=== PATIENT | male | born 1945 | race Caucasian/White ===

== ENCOUNTER 2019-03-21 14:15 | Inpatient (IN) | payer MEDICARE ==
[~2019-03-21 14:15] MED LIST: Amiodarone 150 MG/3 ML VIAL ONE; Calcium Chloride 1 GM/10 ML Abboject SYRINGE ONE; EPINEPHrine 1 MG/10 ML Abboject SYRINGE ONE; ISOVUE-370 76%-LOCM 1 ML ONE
[2019-03-21] MEDS ORDERED: Norepinephrine 4 MG/4 ML VIAL ONE (14:25)
[2019-03-21 14:35] LABS: #Basophils 0.1 thou/uL (0.0-0.2); #Eosinphils 0.2 thou/uL (0.0-0.7); #Lymphocytes 5.1 thou/uL (1.20-3.40); #Monocytes 0.4 thou/uL (0.11-0.59); #Neutrophils 4.8 thou/uL (1.40-6.50); %Basophils 1.1 % (0.0-1.0); %Eosinophils 1.8 % (0.0-10.0); %Lymphocytes 47.8 % (21.0-51.0); %Monocytes 3.8 % (0.0-10.0); %Neutrophils 45.5 % (42.0-75.0); Hemoglobin 15.2 g/dL (14.0-18.0); Mean Corpuscular HGB CONC 32.8 g/dL (32.0-36.0); Mean Corpuscular Hemoglobin 31.2 pg (27.0-31.0); Mean Corpuscular Volume 95.1 fL (78.0-98.0); Mean Platelet Volume 10.1 fL (7.4-10.4); Platelet Count 152 thou/uL (130-400); RBC Distribution Width 12.7 % (11.5-14.5); Red Blood Cell (RBC) Count 4.87 mill/uL (4.70-6.10); White Blood Cell (WBC) Count 10.6 thou/uL (4.8-10.8)
[2019-03-21] MEDS ORDERED: Potassium Chloride 20 MEQ/100 ML PREMIX BAG ONE (14:44)
--- NOTE | 2019-03-21 14:47 | RAD ---
Exam: Chest one view HISTORY:Cardiac arrest. Comparison: None FINDINGS: Cardiac silhouette: Normal Pulmonary vessels: Slightly prominent. Costophrenic angles: Clear Lines and tubes: Endotracheal tube at the level of the clavicles. Nasogastric tube extends beyond the diaphragm. Distal tip is not seen. LUNGS: No masses or consolidation. Pneumothorax: No pneumothorax on the supine projection. Osseous abnormalities: None IMPRESSION: 1. Lines and tubes as above. 2. Slight prominence pulmonary vasculature which may be due to cardiac arrest or supine position.
[2019-03-21 14:54] LABS: INR-International Normal Ratio 1.2; PTT 35.4 SEC (22.9-36.1)
[2019-03-21] MEDS ORDERED: EPINEPHrine 1 MG/10 ML Abboject SYRINGE ONE (15:00)
[2019-03-21] MEDS ORDERED: Sodium Bicarb 50 MEQ/50 ML Abboject 8.4% SYRINGE ONE (15:00)
[2019-03-21] MEDS ORDERED: Amiodarone 150 MG/3 ML VIAL ONE (15:00)
[2019-03-21 15:03] LABS: ALT (SGPT) 279 U/L (8-55); AST (SGOT) 223 U/L (5-34); Alkaline Phosphatase 67 U/L (40-150); Anion Gap 20 mmol/L (10-20); BUN (Urea Nitrogen) 17 mg/dL (8.4-25.7); Bilirubin, Total 0.6 mg/dL (0.2-1.2); CK (CPK) 120 U/L (30-200); Calc. Creatinine Clearance 0 mL/min (70-130); Calcium 8.6 mg/dL (7.8-10.44); Carbon Dioxide 13 mmol/L (23-31); Chloride 108 mmol/L (98-107); Estimated GFR-MDRD 74; Globulin 2.5 g/dL (2.4-3.5); Glucose 210 mg/dL (83-110); Lipase 22 U/L (8-78); Magnesium 3.9 mg/dL (1.6-2.6); Protein, Total 6.5 g/dL (5.8-8.1); Sodium 138 mmol/L (136-145)
[2019-03-21 15:11] LABS: Lactic Acid 6.4 mmol/L (0.5-2.2)
[2019-03-21] MEDS ORDERED: Aspirin 300 MG Suppository ONE (15:14)
--- NOTE | 2019-03-21 15:15 | CT ---
Exam: Head CT without contrast HISTORY: Cardiac arrest. COMPARISON: none FINDINGS: Hemorrhage: No intraparenchymal hemorrhage or extra-axial hematoma. Brain parenchyma: Cortical wright-white matter differentiation is preserved. No mass effect or midline shift. Basilar cisterns are patent.Scattered white matter hypodensities likely due to chronic small vessel ischemic change. Ventricular system: Ventricles and sulci are patent and symmetric. Calvarium: Intact. Sinuses and mastoid air cells: Adequate aeration. IMPRESSION: No acute intracranial process.
[2019-03-21 15:45] LABS: Analyzer IN Cardio ER; Base Excess (BEa) -11.4 mEq/L (-2.0 to +3.0); CO2 Tension 41.2 mmHg (35.0-45.0); Carboxyhemoglobin (COHb) 0.3 gm% (0.0-3.0); Hemoglobin (Hb) 14.8 g/dL (14.0-18.0); O2 Tension (PaO2) 237.1 mmHg (> 70.0); Potassium - ABG Lab 2.97 mmol/L (3.70-5.30); Puncture Site LBA; pH, Arterial 7.21 (7.35-7.45)
[2019-03-21] MEDS ORDERED: Labetalol HCl 100 MG/20 ML VIAL ONE (16:03)
[2019-03-21 16:10] LABS: Bilirubin Negative (Negative); Blood, Urine Moderate (Negative); Clarity CLEAR (Clear); Glucose, Urine (Dipstick) 250 mg/dL (Negative); Leukocyte Negative (Negative); Nitrite Negative (Negative); Protein, Urine (Dipstick) 100 mg/dL (Neg-Trace); Urobilinogen 0.2 mg/dL (0.2-1.0)
[2019-03-21 16:13] LABS: Bacteria/HPF None Seen HPF (None Seen); Hyaline Casts/LPF 0-3 HYALINE CAST LPF (0-3 Hyaline); Squamous Epithelial 0-3 HPF (0-3)
[2019-03-21] MEDS ORDERED: Vecuronium 10 MG VIAL ONE (16:34)
[2019-03-21] MEDS ORDERED: Water For Inject, Bacteriostat 30 ML ONE (16:35)
[2019-03-21] MEDS ORDERED: hydrALAZINE 20 MG/ML VIAL ONE (16:48)
[2019-03-21] MEDS ORDERED: Nitroglycerin 50 MG/250 ML BOT 250 ML ONE (16:58)
--- NOTE | 2019-03-21 17:52 | CT ---
EXAM: CT angiogram of the chest including 3-D rendering: HISTORY: Cardiac arrest right lower abdominal pain COMPARISON: None FINDINGS: There is adequate opacification of the pulmonary arteries. No evidence for aortic aneurysm or dissection. No convincing CT evidence for acute pulmonary embolism. Mild chronic linear and interstitial changes and bullous changes. No evidence for mediastinal mass or adenopathy. Bibasilar subpleural atelectasis. Multiple bilateral rib fractures including displaced fractures involving the left third and fourth ri bs. 3 cm diameter heterogeneous attenuation right adrenal mass, nonspecific. 1.1 cm diameter circumscribe d low-attenuation focus in the liver, statistically a cyst. IMPRESSION: No convincing CT evidence for acute pulmonary embolism. Bilateral pleural-based subsegmental atelectasis worse on the right side with some nonspecific linear stranding and chronic changes in both lungs. Bilateral rib fractures. No pneumothorax. 3 cm diameter nonspecific right adrenal gland mass.
[2019-03-21] MEDS: NS 0.9% w/ 40 MEQ KCL 1,000 ML IV SCH (17:58)
[2019-03-21] MEDS ORDERED: Ventilator Sedation Protocol 1 EACH FS ONE (17:59)
[2019-03-21] MEDS ORDERED: hydrALAZINE 20 MG/ML VIAL SLOW IVP PRN (17:59)
[2019-03-21] MEDS ORDERED: Labetalol HCl 100 MG/20 ML VIAL SLOW IVP PRN (17:59)
[2019-03-21] MEDS ORDERED: Morphine 2 MG/ML SYRINGE SLOW IVP PRN (18:05)
[2019-03-21] MEDS ORDERED: Propofol BOLUS 1,000 MG/100 ML VIAL IV PRN (18:05)
[2019-03-21] MEDS ORDERED: Fentanyl BOLUS 250 ML IVPB PRN (18:05)
[2019-03-21] MEDS ORDERED: DISCONTINUE PREVIOUS NARCOTIC PAIN MEDICATIONS AND BENZODIAZEPINES FS SCH (18:05)
[2019-03-21 18:08] VITALS: BMI 26.1
[2019-03-21 18:38] LABS: Troponin I 0.575 ng/mL (< 0.028)
[2019-03-21] MEDS ORDERED: Nitroglycerin 50 MG/250 ML BOT 250 ML IVPB SCH (19:30)
--- NOTE | 2019-03-21 20:04 | CON ---
DATE OF CONSULTATION: This is a critical note, took 90 minutes of Critical Care time, 50% of them were spent talking with the family and reviewing medical records. HISTORY OF PRESENT ILLNESS: Mr. Ga is a 73-year-old black gentleman, who comes to the hospital after cardiac arrest. He was at a hospice facility seeing his aunt, who is critically ill and dying on hospice. He was sitting down and suddenly just slumped over. There was a hospice nurse present in the room, and when she saw this happened, she immediately put him on the floor and started chest compressions. 911 was called. Eventually, EMS arrived, and according to family's report, it took about 10 minutes for EMS to arrive, and once they got there, the nurse who had been doing chest compressions was extremely tired. They took over and continued chest compressions, applied the pads, and the initial rhythm was a coarse ventricular fibrillation. They shocked him several times out of coarse ventricular fibrillation, continued chest compressions, gave him several doses of epinephrine, and eventually, they regained a perfusable rhythm. He was then transferred over to [facility] for further evaluation and care. On my evaluation, Mr. Ga is actually nonresponsive on a ventilator. He is currently being cooled down as this was a witnessed ventricular fibrillation arrest. He did receive a dose of vecuronium in the ER. Family is at bedside on my evaluation as well. PAST MEDICAL HISTORY: 1. Coronary artery disease. He has a history of bypass surgery, had a DC to the LAD is what it sounds like, and he has a chronically occluded RCA that is collateralized, so this was left alone during the bypass. 2. He has a history of atrial fibrillation and atrial flutter, status post ablation about a year and a half ago. 3. Hypertension. PAST SURGICAL HISTORY: 1. CABG x1 about 3 years ago. 2. Atrial fibrillation/atrial flutter ablation as above. OUTPATIENT MEDICATIONS: Include amlodipine 10 mg a day. Family will bring the list of medications. ALLERGIES: PENICILLIN. SOCIAL HISTORY: Remote history of tobacco use. FAMILY HISTORY: Noncontributory. REVIEW OF SYSTEMS: Unobtainable as the patient is intubated and unresponsive. PHYSICAL EXAMINATION: VITAL SIGNS: Temperature 90.7, currently he is being cooled; respiratory rate 20; saturating 100% on 40% FiO2; pulse of 87; blood pressure 185/95, better after nitroglycerin at 144/82. GENERAL: Intubated, unresponsive. HEENT: Normocephalic. LUNGS: Clear to auscultation. CARDIOVASCULAR: S1 and S2. No S3 or S4. No murmurs. ABDOMEN: Soft. EXTREMITIES: No edema. SKIN: Cool. LABORATORY DATA: Laboratory work was reviewed. CBC; white count of 10, hemoglobin of 15, hematocrit of 46, platelet count of 152. Coags; INR of 1.2. ABG; pH of 7.2, CO2 of 41, pO2 of 237. Chemistry showed a potassium of 3.0, chloride 108, carbon dioxide of 13, anion gap of 20, BUN of 17, creatinine 0.99, GFR of 74, glucose of 210. Lactic acid was 6.4, down to 5.1. Calcium of 8.6. Magnesium of 3.9. Total bilirubin, normal; AST and ALT are mildly elevated; alkaline phosphatase of 67. CK of 120. Troponin I initially 0.026, which is normal; second draw 0.57, this was 3-1/2 hours later. Albumin of 4.0. Lipase of 22. UA; moderate blood, trace ketones, [address] of the thorax showed no convincing CT evidence for acute pulmonary embolism. No evidence of aortic aneurysm or dissection. Mild chronic linear interstitial changes and bullous changes in the bases. No mass or adenopathy. Bibasilar subpleural atelectases and multiple bilateral rib fractures including displaced fractures involving the left third and fourth ribs. There is a 3-cm heterogeneous attenuation right adrenal mass. A 1.1 cm in diameter circumscribed focus in the liver, which seems to be a cyst. ASSESSMENT: 1. Ventricular fibrillation arrest. 2. History of coronary artery disease with previous left internal mammary artery to the left anterior descending and chronically occluded right coronary artery. 3. Chy-EB-opspzidig myocardial infarction. This could be the culprit episode versus just the elevation related to his arrest. 4. History of atrial fibrillation, status post ablation a year and a half ago. PLAN: 1. Continue supportive care for now. 2. He remains completely unresponsive. He had CPR for at least 20 minutes. First 10 minutes were just as a bystander CPR from a nurse, which I expect to be certified in CPR; however, for 10 minutes. Initial rhythm was coarse ventricular fibrillation. Continue amiodarone for now. 3. If his troponins continue to rise significantly, we will plan on doing a heart catheterization to evaluate for coronary ischemia. 4. LV function on echo stat at the moment on arrival in the ER showed an EF about 45% with no major regional wall motion abnormalities and no major valvular abnormalities. 5. If his troponins remain in a low level range, we will plan on doing a heart catheterization only when we see neurological recovery. Otherwise, if his troponins increase significantly, we will take him now. 6. We will continue to monitor. TIME SPENT: 90 minutes of Critical Care time, half of the time in reviewing chart records and talking with family members. Job ID: [id number]
[2019-03-21] MEDS ORDERED: Propofol 1,000 MG/100 ML VIAL IV ONE (20:21)
[2019-03-21] MEDS: Famotidine/PF 20 mg/2ml Vial SLOW IVP SCH (20:23)
[2019-03-21] MEDS: Propofol 1,000 MG/100 ML VIAL IV PRN (20:23)
[2019-03-21 20:28] LABS: Actual Bicarbonate (HCO3a) 17.3 mEq/L (22-28); Base Excess (BEa) -5.7 mEq/L (-2.0 to +3.0); CO2 Tension 28.7 mmHg (35.0-45.0); Calcium, Ionized 1.03 mmol/L (1.12-1.30); Carboxyhemoglobin (COHb) 0.7 gm% (0.0-3.0); O2 Tension (PaO2) 105.9 mmHg (> 70.0); Potassium - ABG Lab 3.08 mmol/L (3.70-5.30)
[2019-03-21 20:30] LABS: ALV-art Gradient 143.425 (0-20); Puncture Site RBR
--- NOTE | 2019-03-21 20:57 | HP ---
PRIMARY CARE PHYSICIAN: Dr. Marcos in [place], [place]. CHIEF COMPLAINT: Collapsed while visiting his aunt. HISTORY OF PRESENT ILLNESS: The history of present illness is taken from the patient's over the phone as the patient is currently intubated and cannot give any additional history. The patient's says that he has a history of coronary artery disease as well as hypertension. He has also had a history of atrial fibrillation and flutter in the past as well. He had driven here from the [facility] to visit his aunt who is in hospice and while he was visiting, he collapsed. The hospice nurses there started CPR immediately and called EMS. When EMS arrived, he was found to be in ventricular fibrillation. At one time, they saw what appeared to be a torsades rhythm. He was intubated. He had been given lidocaine as well as magnesium and brought to the emergency room here. Since being in the ER, he was found to be hypotensive and he was started on Levophed. Since then, his blood pressure has recovered and he has been able to be weaned off the Levophed. He has been started on the hypothermic protocol as well as fluid resuscitation and is being admitted for further treatment. His nephew who is at the bedside also mention that he has been driving back and forth to visit the aunt and some of the trips are as long as 3 hours and he recently had a long trip and was complaining of some groin pain as well. REVIEW OF SYSTEMS: The review of systems is unobtainable as the patient is obtunded. PAST MEDICAL HISTORY: Significant for coronary artery disease, atrial fibrillation and flutter, hypertension, and BPH. PAST SURGICAL HISTORY: He has had a single-vessel bypass as well as an ablation approximately a year and a half ago, has had cataract surgery. ALLERGIES: TO PENICILLIN. SOCIAL HISTORY: He is a former smoker. He quit about 30 years ago. Does not drink, and he is . FAMILY HISTORY: Significant for heart disease. MEDICATIONS: Include; 1. Amlodipine. 2. A medication for his prostate. PHYSICAL EXAMINATION: GENERAL: He has been given a paralytic, so therefore the physical is limited. HEENT: His pupils are minimally reactive. Throat, the ET tube is in place. No obvious oral lesions. NECK: No adenopathy. No bruits. LUNGS: Clear to auscultation. There is no wheezing, no rales, no rhonchi. CARDIOVASCULAR: His heart rate is a bit irregular. Heart sounds are distant. There is no murmurs, no clicks, no rubs. ABDOMEN: Soft. It is positive for bowel sounds. There is no rebound, no guarding. EXTREMITIES: There is no edema. No calf tenderness. No bruising. No joint effusions. NEUROLOGIC: Again, he has been given a paralytic. SKIN AND INTEGUMENT: No significant skin changes. No rashes. IMAGING STUDIES: On his EKG, he is in atrial fibrillation. His heart rate is in the 50s. He has a right bundle-branch block and some T-wave inversion. He had a CT scan of the brain showing no acute intracranial process and also had an x-ray of his chest showing a slight prominence in the pulmonary vasculature as well as what appears to be cardiomegaly best by my reading. EKG is also by my reading. LABORATORY RESULTS: White blood cell count is 10.6, hemoglobin 15.2, hematocrit is 46.3, and platelet count is 152. INR is 1.2. Sodium 138, potassium 3.0, chloride is 108, CO2 is 13, BUN of 17, creatinine 0.99, glucose is 210, magnesium was 3.9, AST 223, ALT 279. Lactic acid was 6.4. Troponin is 0.026. ASSESSMENT: 1. This is a 73-year-old gentleman who had a sudden collapse with significant arrhythmia. He does have a history of coronary artery disease in the past. He underwent immediate CPR with return of spontaneous circulation and has been placed on the hypothermic protocol. He will be admitted to the ICU. We will continue the hypothermia protocol. Continue fluid resuscitation. We will get a stat CT angio of the chest given the history of the long car ride in the event that a pulmonary embolism precipitated this event. Also, a stat echocardiogram has also been ordered. Cardiology will be consulted for possible malignant arrhythmia. 2. Respiratory failure and acute hypoxic respiratory failure. Pulmonology will be consulted to help with ventilator management as well as critical care management. We will also get blood and urine cultures in the event that this was sepsis, but this is unlikely. We will hold off on any empiric antibiotics at this time unless recommended by the metallurgical specialist. 3. Atrial fibrillation. Once again, we will defer management of this to Cardiology and further recommendations will be based on the above results. Job ID: [id number]
[2019-03-21 21:01] LABS: CKMB 13.8 ng/mL (0-6.6)
[2019-03-21] MEDS: Enoxaparin Sodium 80 MG/0.8 ML SYRINGE SC SCH (21:03)
[2019-03-21] MEDS: fentaNYL Citrate/PF 2,000 MCG in Sodium Chloride 0.9% 60 ML IV SCH (21:11)
[2019-03-21 22:16] LABS: #Eosinphils 0.1 thou/uL (0.0-0.7); #Lymphocytes 0.8 thou/uL (1.20-3.40); #Neutrophils 17.8 thou/uL (1.40-6.50); %Eosinophils 0.3 % (0.0-10.0); %Lymphocytes 3.8 % (21.0-51.0); %Neutrophils 90.8 % (42.0-75.0); Hemoglobin 15.6 g/dL (14.0-18.0); Mean Corpuscular HGB CONC 32.7 g/dL (32.0-36.0); Mean Corpuscular Hemoglobin 30.6 pg (27.0-31.0); Mean Corpuscular Volume 93.6 fL (78.0-98.0); Mean Platelet Volume 10.6 fL (7.4-10.4); Platelet Count 164 thou/uL (130-400); RBC Distribution Width 12.7 % (11.5-14.5); Red Blood Cell (RBC) Count 5.11 mill/uL (4.70-6.10); White Blood Cell (WBC) Count 19.6 thou/uL (4.8-10.8)
[2019-03-21] MEDS ORDERED: Vecuronium 10 MG VIAL IV PRN (22:21)
--- NOTE | 2019-03-21 22:21 | CON ---
DATE OF CONSULTATION: HISTORY OF PRESENT ILLNESS: Celso Ga is a 73-year-old gentleman, from [place] who is visiting his aunt at a hospice in [facility] when he suddenly developed ventricular tachycardia. The nurse was present right at that time. CPR was initiated. EMS was called in and was transferred to [facility]. He was placed on hypothermia protocol roughly about 4 o'clock or so. The patient was for a brief time hypotensive in the ER. Exact CPR at this stage is unclear but he was in VFib, V-tach shocks several times, had episodes with a pulse, but lasted few minutes sounds like he was in pulseless electrical activity for a while. He was given lidocaine 100 mg. C-collar was placed in and transferred to [facility] where in the ER, seen by the ER physician. Please review his admission note. Once again, it is unclear how long the CPR was done. PAST MEDICAL HISTORY: His now tells me that the past medical history is pertinent for atrial fibrillation, coronary artery disease, hypertension, he takes Alfuzosin ER 10 a day, amlodipine, Norvasc 10 a day, sildenafil 100 mg as needed. ALLERGIES: PENICILLIN. PAST SURGICAL HISTORY: Including ablation and bypass, right ankle surgery years ago. SOCIAL HISTORY: Apparently a retired carpet installer, plays music now. REVIEW OF SYSTEMS: Ten-point negative. PHYSICAL EXAMINATION: GENERAL: In the ICU, on a nitroglycerin drip. He is in no sedation. VITAL SIGNS: Blood pressure is 102/60, respiratory rate 22, pulse 76, saturations 100%. HEENT: Pupils are pinpoint. CHEST: No wheezing or crackles. CARDIAC: Normal S1, S2. ABDOMEN: No masses. NEUROLOGIC: He is moving little bit of the lower extremities . LABORATORY DATA: White count 39248, H and H 15 and 46, platelet count is normal. PO2 is 273, pCO2 , PEEP of 5, rate of 14. His lytes are normal. Troponin is 0.57. Lactic acid is 5.1. Urine is unremarkable. Chest x-ray was normal. CT head was negative. CT chest shows multiple rib fractures as outlined. His the EKG shows atrial fibrillation, slow rate, right bundle branch block. IMPRESSION: 1. Status post ventricular tachycardia, ventricular fibrillation, torsades, status post cardioversion. 2. History of coronary artery disease status post ablation, status post CABG. 3. Nonsmoker, nondrinker. 4. Hypertension. PLAN: Continue hypothermia protocol for 24 hours. Cardiology input. Start nutrition in the next 24 to 48 hours. Pulmonary to follow. This is a 45-minute critical care time. Job ID: [id number]
[2019-03-21 22:22] LABS: INR-International Normal Ratio 1.2; Prothrombin Time 14.7 SEC (12.0-14.7)
[2019-03-21] MEDS ORDERED: Sterile Water 10 ML VIAL IVP PRN (22:22)
[2019-03-21 22:23] LABS: PTT 29.2 SEC (22.9-36.1)
[2019-03-21 22:35] LABS: Lactic Acid 8.9 mmol/L (0.5-2.2)
[2019-03-21 22:37] LABS: Anion Gap 19 mmol/L (10-20); BUN (Urea Nitrogen) 23 mg/dL (8.4-25.7); Calc. Creatinine Clearance 63 mL/min (70-130); Calcium 8.6 mg/dL (7.8-10.44); Carbon Dioxide 21 mmol/L (23-31); Chloride 104 mmol/L (98-107); Estimated GFR-MDRD 54; Glucose 302 mg/dL (83-110); Magnesium 2.4 mg/dL (1.6-2.6); Phosphorus 2.4 mg/dL (2.3-4.7); Potassium 3.3 mmol/L (3.5-5.1); Sodium 141 mmol/L (136-145)
[2019-03-22] MEDS: Norepinephrine 8 MG in Dextrose 5% in Water 242 ML IVPB PRN ×2 (01:32→12:24)
[2019-03-22] MEDS: Lorazepam 2 MG/ML VIAL SLOW IVP PRN ×2 (02:52→16:55)
[2019-03-22 04:41] LABS: #Lymphocytes 0.8 thou/uL (1.20-3.40); #Neutrophils 16.7 thou/uL (1.40-6.50); %Eosinophils 0.2 % (0.0-10.0); %Lymphocytes 4.1 % (21.0-51.0); %Monocytes 5.2 % (0.0-10.0); %Neutrophils 90.5 % (42.0-75.0); Mean Corpuscular HGB CONC 32.6 g/dL (32.0-36.0); Mean Corpuscular Hemoglobin 30.2 pg (27.0-31.0); Mean Corpuscular Volume 92.6 fL (78.0-98.0); Platelet Count 174 thou/uL (130-400); RBC Distribution Width 12.9 % (11.5-14.5); Red Blood Cell (RBC) Count 4.97 mill/uL (4.70-6.10); White Blood Cell (WBC) Count 18.5 thou/uL (4.8-10.8)
[2019-03-22 04:47] LABS: INR-International Normal Ratio 1.2; PTT 34.3 SEC (22.9-36.1); Prothrombin Time 14.8 SEC (12.0-14.7)
[2019-03-22 05:04] LABS: Anion Gap 16 mmol/L (10-20); BUN (Urea Nitrogen) 28 mg/dL (8.4-25.7); Calc. Creatinine Clearance 51 mL/min (70-130); Calcium 9.3 mg/dL (7.8-10.44); Carbon Dioxide 21 mmol/L (23-31); Chloride 108 mmol/L (98-107); Estimated GFR-MDRD 42; Glucose 181 mg/dL (83-110); Magnesium 2.2 mg/dL (1.6-2.6); Phosphorus 1.1 mg/dL (2.3-4.7); Potassium 3.9 mmol/L (3.5-5.1); Sodium 141 mmol/L (136-145)
[2019-03-22] MEDS: Propofol 1,000 MG/100 ML VIAL IV PRN ×2 (05:10→23:55)
[2019-03-22 05:34] LABS: CKMB 18.9 ng/mL (0-6.6)
[2019-03-22] MEDS ORDERED: Potassium Phosphate 9 MMOL in Sodium Chloride 0.9% 100 ML IVPB SCH (06:00)
--- NOTE | 2019-03-22 08:11 | RAD ---
EXAM: CHEST ONE VIEW HISTORY: On ventilator. COMPARISON: 03/21/2019 FINDINGS: Endotracheal tube and nasogastric tube remain in place and unchanged in position. The cardiac silhoue tte is magnified by projection but does appear mildly enlarged. There is mild increased density in the right lung apex. This may be related to superimposition of structures, but developing pneumonitis right lung apex is a possibility. Lungs otherwise appear clear, and no pleural effusion is identified. Vascular calcifications are seen in the thoracic aorta. No other interval change. IMPRESSION: 1. Increased linear and patchy densities right lung apex. This is probably related to superimposition of structures, but developing infiltrate cannot be excluded. Follow-up chest x-ray is recommended. 2. Endotracheal tube and nasogastric tubes are stable in position.
--- NOTE | 2019-03-22 08:23 | PRG ---
DATE OF SERVICE: 03/22/2019 SUBJECTIVE: This morning, once sedation his is withheld, he was appropriate. Moves all 4 extremities. He is clearly encephalopathic. OBJECTIVE: VITAL SIGNS: Blood pressure is low at 95/59, pulse 62, saturations are 100%, respiratory rate 18, temperature 99. CHEST: Bilateral rhonchi. CARDIAC: Normal S1, S2. No gallops. ABDOMEN: No masses. LABORATORY DATA: White count 18,000, H and H 15 and 46, platelet count is normal. His PO2 was 105, pCO2 28, pH 7.40, 40%, PEEP of 5. Creatinine 1.62, sodium 141. Lactic acid is 8.9. Troponin is elevated at 2.8. IMPRESSION: 1. Status post ventricular tachycardia, status post CPR, status post hypothermia protocol. 2. Encephalopathy, probably some anoxic injury. PLAN: Adjust vent. Will start empiric antibiotics. Await input from Cardiology. Nutrition in the next 24 to 48 hours. One-half hour of critical care time. Job ID: [id number]
[2019-03-22] MEDS: cefTRIAXone\\ROCEPHIN 1 GM in Sodium Chloride 0.9% 100 ML IVPB SCH (08:51)
[2019-03-22] MEDS: NS 0.9% w/ 40 MEQ KCL 1,000 ML IV SCH ×2 (08:53→19:40)
[2019-03-22] MEDS: Famotidine/PF 20 mg/2ml Vial SLOW IVP SCH (08:53)
[2019-03-22] MEDS: Enoxaparin Sodium 80 MG/0.8 ML SYRINGE SC SCH ×2 (08:53→21:23)
[2019-03-22] MEDS: fentaNYL Citrate/PF 2,000 MCG in Sodium Chloride 0.9% 60 ML IV SCH ×2 (09:45→23:38)
[2019-03-22 10:14] LABS: #Lymphocytes 1.2 thou/uL (1.20-3.40); #Monocytes 1.4 thou/uL (0.11-0.59); #Neutrophils 16.9 thou/uL (1.40-6.50); %Eosinophils 0.1 % (0.0-10.0); %Lymphocytes 6.3 % (21.0-51.0); %Monocytes 7.3 % (0.0-10.0); %Neutrophils 86.3 % (42.0-75.0); Hemoglobin 14.4 g/dL (14.0-18.0); Mean Corpuscular HGB CONC 32.6 g/dL (32.0-36.0); Mean Corpuscular Hemoglobin 30.1 pg (27.0-31.0); Mean Corpuscular Volume 92.4 fL (78.0-98.0); Mean Platelet Volume 10.2 fL (7.4-10.4); Platelet Count 160 thou/uL (130-400); RBC Distribution Width 12.9 % (11.5-14.5); Red Blood Cell (RBC) Count 4.77 mill/uL (4.70-6.10); White Blood Cell (WBC) Count 19.6 thou/uL (4.8-10.8)
[2019-03-22 10:21] LABS: INR-International Normal Ratio 1.2; PTT 39.4 SEC (22.9-36.1)
[2019-03-22 10:46] LABS: Critical Call Chem Troponin I RESULT DECREASING
[2019-03-22 11:04] LABS: Anion Gap 16 mmol/L (10-20); BUN (Urea Nitrogen) 32 mg/dL (8.4-25.7); Calc. Creatinine Clearance 42 mL/min (70-130); Calcium 8.6 mg/dL (7.8-10.44); Carbon Dioxide 22 mmol/L (23-31); Chloride 108 mmol/L (98-107); Estimated GFR-MDRD 34; Glucose 151 mg/dL (83-110); Magnesium 2.3 mg/dL (1.6-2.6); Phosphorus 4.6 mg/dL (2.3-4.7); Potassium 4.4 mmol/L (3.5-5.1); Sodium 142 mmol/L (136-145)
[2019-03-22 11:06] LABS: CKMB 13.8 ng/mL (0-6.6); Critical Call CKMB RESULT DECREASING
[2019-03-22] MEDS ORDERED: Iopamidol 370 76% 50 ML VIAL FS ONE (13:00)
[2019-03-22] MEDS ORDERED: Iopamidol 370 76% 100 ML VIAL ONE (13:00)
[2019-03-22] MEDS ORDERED: Lidocaine 1% (PF) 30 ML VIAL ONE (13:23)
[2019-03-22] MEDS ORDERED: Aggrastat 12.5 MG/250 ML 250 ML ONE (15:02)
[2019-03-22] MEDS ORDERED: TICAGRELOR 90 MG TABLET PO SCH (15:45)
[2019-03-22] MEDS ORDERED: Sodium Chloride 0.9% 1,000 ML IV SCH (15:45)
[2019-03-22] MEDS ORDERED: Ondansetron PF 4 MG/2 ML Vial ONE (15:54)
[2019-03-22 16:37] LABS: Hemoglobin 14.1 g/dL (14.0-18.0); Mean Corpuscular HGB CONC 33.4 g/dL (32.0-36.0); Mean Corpuscular Hemoglobin 30.8 pg (27.0-31.0); Mean Corpuscular Volume 92.1 fL (78.0-98.0); Mean Platelet Volume 10.1 fL (7.4-10.4); Platelet Count 146 thou/uL (130-400); RBC Distribution Width 13.1 % (11.5-14.5); Red Blood Cell (RBC) Count 4.58 mill/uL (4.70-6.10); White Blood Cell (WBC) Count 19.7 thou/uL (4.8-10.8)
[2019-03-22 16:43] LABS: INR-International Normal Ratio 1.2; PTT 43.2 SEC (22.9-36.1); Prothrombin Time 15.5 SEC (12.0-14.7)
[2019-03-22 17:01] LABS: Anion Gap 14 mmol/L (10-20); BUN (Urea Nitrogen) 33 mg/dL (8.4-25.7); Calc. Creatinine Clearance 52 mL/min (70-130); Calcium 8.5 mg/dL (7.8-10.44); Carbon Dioxide 20 mmol/L (23-31); Chloride 110 mmol/L (98-107); Estimated GFR-MDRD 43; Glucose 126 mg/dL (83-110); Magnesium 2.1 mg/dL (1.6-2.6); Phosphorus 4.3 mg/dL (2.3-4.7); Potassium 4.1 mmol/L (3.5-5.1); Sodium 140 mmol/L (136-145)
[2019-03-22 17:04] LABS: Critical Call Chem Troponin I RESULT DECREASING
[2019-03-22 17:37] LABS: Band 14 % (5-11); Lymphocytes 3 % (21-51); MDiff Complete? YES; Monocytes 2 % (0-10); Neutrophil 81 % (42-75); Platelet Morphology Comment Appears Adequate; RBC Morphology Normal
[2019-03-22 17:39] LABS: CKMB 14.5 ng/mL (0-6.6)
--- NOTE | 2019-03-22 18:18 | PDOC.PN ---
- Subjective Encounter Start Date: 03/22/19 Encounter Start Time: 18:16 Mr. Ga was seen today in follow-up of VFIB arrest. He is intubated but awake and alert. He is following commands. - Objective Resuscitation Status - Order Detail: 03/21/19 16:21 Resuscitation Status Routine Resuscitation Status: FULL: Full Resuscitation MAR Reviewed: Yes Vital Signs & Weight: Vital Signs (12 hours) Pulse BP 03/22/19 10:39 51 L 112/53 L 03/22/19 06:48 62 95/59 L Weight Admit Weight 192 lb 10.944 oz Weight 192 lb 10.944 oz Most Recent Monitor Data Heart Rate from ECG 57 NIBP 102/55 NIBP BP-Mean 70 Respiration from ECG 3 SpO2 100 I&O: 03/21/19 03/22/19 03/23/19 06:59 06:59 06:59 Output Total 2067 Balance -2067 Result Diagrams: 03/22/19 16:24 03/22/19 16:24 Phys Exam - Physical Examination HEENT: PERRLA Respiratory: no wheezing, no rales, no rhonchi, clear to auscultation bilateral Cardiovascular: RRR, no significant murmur, no rub Gastrointestinal: soft, non-tender, no distention, positive bowel sounds Musculoskeletal: no edema, pulses present Dx/Plan (1) Ventricular fibrillation Code(s): I49.01 - VENTRICULAR FIBRILLATION Status: Acute (2) CAD (coronary artery disease) Code(s): I25.10 - ATHSCL HEART DISEASE OF [place] CORONARY ARTERY W/O ANG PCTRS Status: Acute (3) BPH (benign prostatic hyperplasia) Code(s): N40.0 - BENIGN PROSTATIC HYPERPLASIA WITHOUT LOWER URINRY TRACT SYMP Status: Chronic (4) Hypertension Code(s): I10 - ESSENTIAL (PRIMARY) HYPERTENSION Status: Chronic - Plan * Ventricular Fibrillation- work-up as per Cardiology * Echo results were noted * Respiratory failure- improved- he has [address] scan- and as a result he will remain intubated for a period * Rocephin has been added to his regimen- upper lobe infiltrates * HTN- blood pressure is stable
[2019-03-22] MEDS: Sodium Chloride 0.9% 1,000 ML IV SCH (21:22)
[2019-03-22 22:36] LABS: #Lymphocytes 1.8 thou/uL (1.20-3.40); #Monocytes 1.4 thou/uL (0.11-0.59); #Neutrophils 15.1 thou/uL (1.40-6.50); %Basophils 0.2 % (0.0-1.0); %Eosinophils 0.1 % (0.0-10.0); %Lymphocytes 9.6 % (21.0-51.0); %Monocytes 7.7 % (0.0-10.0); %Neutrophils 82.5 % (42.0-75.0); Hemoglobin 12.6 g/dL (14.0-18.0); Mean Corpuscular HGB CONC 32.6 g/dL (32.0-36.0); Mean Corpuscular Hemoglobin 30.5 pg (27.0-31.0); Mean Corpuscular Volume 93.6 fL (78.0-98.0); Mean Platelet Volume 9.9 fL (7.4-10.4); Platelet Count 123 thou/uL (130-400); Red Blood Cell (RBC) Count 4.13 mill/uL (4.70-6.10); White Blood Cell (WBC) Count 18.3 thou/uL (4.8-10.8)
[2019-03-22 22:44] LABS: PTT 46.7 SEC (22.9-36.1)
[2019-03-22 22:45] LABS: INR-International Normal Ratio 1.3; Prothrombin Time 15.9 SEC (12.0-14.7)
[2019-03-22 23:06] LABS: Anion Gap 12 mmol/L (10-20); BUN (Urea Nitrogen) 35 mg/dL (8.4-25.7); Calc. Creatinine Clearance 54 mL/min (70-130); Calcium 8.3 mg/dL (7.8-10.44); Carbon Dioxide 22 mmol/L (23-31); Chloride 111 mmol/L (98-107); Estimated GFR-MDRD 45; Glucose 119 mg/dL (83-110); Magnesium 2.1 mg/dL (1.6-2.6); Phosphorus 5.3 mg/dL (2.3-4.7); Potassium 4.3 mmol/L (3.5-5.1); Sodium 141 mmol/L (136-145)
[2019-03-22 23:29] LABS: CKMB 9.3 ng/mL (0-6.6); Critical Call CKMB RESULT DECREASING
[2019-03-23] MEDS: Norepinephrine 8 MG in Dextrose 5% in Water 242 ML IVPB PRN ×2 (03:46→23:51)
[2019-03-23] MEDS: Sodium Chloride 0.9% 1,000 ML IV SCH ×2 (03:46→16:35)
[2019-03-23 04:32] LABS: #Lymphocytes 2.1 thou/uL (1.20-3.40); #Monocytes 1.3 thou/uL (0.11-0.59); #Neutrophils 13.5 thou/uL (1.40-6.50); %Basophils 0.2 % (0.0-1.0); %Eosinophils 0.3 % (0.0-10.0); %Lymphocytes 12.5 % (21.0-51.0); %Monocytes 7.9 % (0.0-10.0); %Neutrophils 79.1 % (42.0-75.0); Hemoglobin 12.1 g/dL (14.0-18.0); Mean Corpuscular HGB CONC 32.2 g/dL (32.0-36.0); Mean Corpuscular Hemoglobin 30.5 pg (27.0-31.0); Mean Corpuscular Volume 94.5 fL (78.0-98.0); Mean Platelet Volume 10.2 fL (7.4-10.4); Platelet Count 125 thou/uL (130-400); RBC Distribution Width 13.1 % (11.5-14.5); Red Blood Cell (RBC) Count 3.98 mill/uL (4.70-6.10)
[2019-03-23 04:53] LABS: ALT (SGPT) 280 U/L (8-55); AST (SGOT) 148 U/L (5-34); Albumin 3.5 g/dL (3.4-4.8); Alkaline Phosphatase 44 U/L (40-150); Anion Gap 12 mmol/L (10-20); BUN (Urea Nitrogen) 36 mg/dL (8.4-25.7); Bilirubin, Total 0.7 mg/dL (0.2-1.2); Calc. Creatinine Clearance 58 mL/min (70-130); Calcium 8.7 mg/dL (7.8-10.44); Carbon Dioxide 23 mmol/L (23-31); Chloride 111 mmol/L (98-107); Estimated GFR-MDRD 49; Globulin 2.3 g/dL (2.4-3.5); Glucose 116 mg/dL (83-110); Potassium 4.2 mmol/L (3.5-5.1); Protein, Total 5.8 g/dL (5.8-8.1); Sodium 142 mmol/L (136-145)
[2019-03-23 07:01] LABS: Actual Bicarbonate (HCO3a) 25.4 mEq/L (22-28); Base Excess (BEa) 0.1 mEq/L (-2.0 to +3.0); CO2 Tension 44.1 mmHg (35.0-45.0); Calcium, Ionized 1.15 mmol/L (1.12-1.30); Carboxyhemoglobin (COHb) 0.9 gm% (0.0-3.0); Hemoglobin (Hb) 12.4 g/dL (14.0-18.0); O2 Tension (PaO2) 73.1 mmHg (> 70.0); Potassium - ABG Lab 4.06 mmol/L (3.70-5.30); pH, Arterial 7.38 (7.35-7.45)
[2019-03-23 07:03] LABS: ALV-art Gradient 121.325 (0-20); Puncture Site RRA
[2019-03-23] MEDS ORDERED: DC Sedation Protocol FS ONE (08:26)
[2019-03-23] MEDS ORDERED: Famotidine/PF 20 mg/2ml Vial SLOW IVP SCH (09:00)
[2019-03-23] MEDS ORDERED: Aspirin Chewable 81 MG TAB PO SCH (09:00)
[2019-03-23] MEDS ORDERED: TICAGRELOR 90 MG TABLET PO SCH ×2 (09:00→21:00)
--- NOTE | 2019-03-23 09:01 | PRG ---
DATE OF SERVICE: 03/23/2019 SUBJECTIVE: Celso Ga is a 73-year-old gentleman, who underwent cardiac catheterization yesterday by Dr. Prieto. Apparently, according to his , there were multiple stents placed in. This morning, he is on a fentanyl drip. X-ray shows right-sided infiltrate. OBJECTIVE: VITAL SIGNS: His blood pressure is still low at 140/80, pulse 67, respirations 18, and saturations 100%. GENERAL: He does nod the head appropriately. CHEST: Decreased breath sounds. No wheezing. CARDIAC: Normal S1 and S2. No gallops. ABDOMEN: No masses. LABORATORY DATA: PO2 of 73, pCO2 of 44, pH of 7.38 on a rate of 14, 35%. His lytes are normal, creatinine 1.43. IMPRESSION: 1. Coronary artery disease, status post ventricular fibrillation, ventricular tachycardia. 2. Status post cath, multiple stents. 3. Probably aspiration pneumonia. 4. Respiratory failure. 5. Hypertension. 6. Azotemia. PLAN: Continue to minimize sedation. Hopefully, we can wean and extubate in the next 24 to 48 hours. One-half hour of critical care time. PT, nutrition. Job ID: [id number]
[2019-03-23] MEDS: Enoxaparin Sodium 80 MG/0.8 ML SYRINGE SC SCH (09:34)
[2019-03-23] MEDS: cefTRIAXone\\ROCEPHIN 1 GM in Sodium Chloride 0.9% 100 ML IVPB SCH (09:40)
--- NOTE | 2019-03-23 09:55 | RAD ---
CHEST 1 VIEW: HISTORY: Respiratory insufficiency. COMPARISON: 03/22/2019. FINDINGS: NG tube and endotracheal tubes are in good position. There are some progressive abnormal opacity junito nges in the right lung including the right upper lobe and new parenchymal density in the right perihi lar and right infrahilar regions. Findings certainly could represent developing pneumonia. The left chest is stable. IMPRESSION: Worsening alveolar nodular parenchymal changes in the right lung. Stable-appearing left chest. POS: TPC
--- NOTE | 2019-03-23 13:23 | PDOC.PN ---
- Subjective Encounter Start Date: 03/23/19 Encounter Start Time: 07:00 Subjective: is weaning, is planning on extubation shortly -: and daughter at bedside -: responds to verbal stimuli - Objective Resuscitation Status - Order Detail: 03/21/19 16:21 Resuscitation Status Routine Resuscitation Status: FULL: Full Resuscitation MAR Reviewed: Yes Vital Signs & Weight: Vital Signs (12 hours) Pulse Resp BP Pulse Ox 03/23/19 08:15 99 25 H 100 03/23/19 06:53 67 03/23/19 02:05 57 L 115/55 L Weight Admit Weight 192 lb 10.944 oz Weight 192 lb 10.944 oz Most Recent Monitor Data Heart Rate from ECG 79 NIBP 148/74 NIBP BP-Mean 98 Respiration from ECG 15 SpO2 100 I&O: 03/22/19 03/23/19 03/24/19 06:59 06:59 06:59 Intake Total 3112.6 Output Total 2068 1011 Balance -8 2101.6 Result Diagrams: 03/23/19 04:25 03/23/19 04:25 Phys Exam - Physical Examination HEENT: PERRLA, sclera anicteric Neck: no JVD, supple Respiratory: no wheezing, no rales Cardiovascular: RRR, no significant murmur Gastrointestinal: soft, non-tender, positive bowel sounds Musculoskeletal: no edema, pulses present Neurological: non-focal, moves all 4 limbs Dx/Plan (1) Acute respiratory failure with hypoxia Code(s): J96.01 - ACUTE RESPIRATORY FAILURE WITH HYPOXIA Status: Acute Comment: likely will be extubated this am (2) Ventricular fibrillation Code(s): I49.01 - VENTRICULAR FIBRILLATION Status: Acute Comment: s/p cpr following arrest at home, hypothermia protocol (3) Acute encephalopathy Code(s): G93.40 - ENCEPHALOPATHY, UNSPECIFIED Status: Acute Comment: ?sec to anoxia (4) CAD (coronary artery disease) Code(s): I25.10 - ATHSCL HEART DISEASE OF [place] CORONARY ARTERY W/O ANG PCTRS Status: Acute Qualifiers: Coronary Disease-Associated Artery/Lesion type: bypass graft [place] vs. transplanted heart: [place] heart Comment: s/o cath with stents and ptca, await official reports (5) h/o afib Status: Chronic (6) BPH (benign prostatic hyperplasia) Code(s): N40.0 - BENIGN PROSTATIC HYPERPLASIA WITHOUT LOWER URINRY TRACT SYMP Status: Chronic Qualifiers: Lower urinary tract symptom presence: unspecified whether lower urinary tract symptoms present Qualified Code(s): N40.0 - Benign prostatic hyperplasia without lower urinary tract symptoms (7) Hypertension Code(s): I10 - ESSENTIAL (PRIMARY) HYPERTENSION Status: Chronic Qualifiers: Hypertension type: essential hypertension Qualified Code(s): I10 - Essential (primary) hypertension - Plan is on asp, lovenox, brilinta, may dc lovenox if ok with cardio -: ceftriaxone, nebs, is coming off levophed with BP improved -: prognosis guarded -: d/w and daughter at bedside -: will need PT/OT from am * . Review of Systems - Medications/Allergies Allergies/Adverse Reactions: Allergies Allergy/AdvReac Type Severity Reaction Status Date / Time Penicillins Allergy Unknown Verified 03/21/19 18:20 Medications: Current Medications Aspirin (Aspirin Chewable) 81 mg PO DAILY [facility] Last Admin: 03/23/19 09:41 Dose: Not Given Enoxaparin Sodium (Lovenox) 80 mg SC 0900,2100 [facility] Last Admin: 03/23/19 09:34 Dose: 80 mg Famotidine (Pepcid) 20 mg SLOW IVP DAILY [facility] Last Admin: 03/23/19 09:36 Dose: 20 mg Hydralazine HCl (Apresoline) 10 mg SLOW IVP Q4H PRN PRN Reason: SBP > 180 and HR < 70 Nitroglycerin/Dextrose (Nitroglycerin 50 Mg/250 Ml Bot) 250 mls @ 0 mls/hr IVPB INF [facility]; Protocol Norepinephrine Bitartrate 8 mg (/ Dextrose/Water) 250 mls @ 0 mls/hr IVPB INF PRN; Protocol PRN Reason: TO MAINTAIN MAP > 65 Last Admin: 03/23/19 03:46 Dose: 250 mls Ceftriaxone Sodium 1 gm/ (Sodium Chloride) 100 mls @ 200 mls/hr IVPB Q24HR [facility] Last Admin: 03/23/19 09:40 Dose: 100 mls Sodium Chloride (Normal Saline 0.9%) 1,000 mls @ 100 mls/hr IV .Q10H [facility] Last Admin: 03/23/19 03:46 Dose: 1,000 mls Labetalol HCl (Normodyne) 20 mg SLOW IVP Q4H PRN PRN Reason: SBP > 180 and HR >/= 70 Morphine Sulfate (Morphine) 4 mg SLOW IVP Q4H PRN PRN Reason: Moderate Pain (4-6) Propofol (Diprivan) 1,000 mg IV INF PRN; Protocol PRN Reason: TO ACHIEVE GOAL RASS Stop: 04/20/19 18:05 Last Admin: 03/22/19 23:55 Dose: 1,000 mg Sodium Chloride (Flush - Normal Saline) 10 ml IVF Q12HR [facility] Last Admin: 03/23/19 09:36 Dose: 10 ml Sodium Chloride (Flush - Normal Saline) 10 ml IVF PRN PRN PRN Reason: Saline Flush Ticagrelor (Brilinta) 90 mg PO BID [facility] Last Admin: 03/23/19 09:41 Dose: Not Given
[2019-03-23] MEDS: Morphine 4 MG/ML VIAL SLOW IVP PRN ×2 (16:32→21:20)
--- NOTE | 2019-03-23 18:38 | PDOC.CTH ---
Cardiology Progress Note - Subjective He is doing well. Extubated now and fully awake and conversant. No apparent neurological sequeleae. - Objective Vital Signs Pulse Resp Pulse Ox 03/23/19 08:15 99 25 H 100 03/23/19 08:00 14 03/23/19 06:53 67 Admit Weight 192 lb 10.944 oz Weight 192 lb 10.944 oz 03/22/19 03/23/19 03/24/19 06:59 06:59 06:59 Intake Total 3112.6 Output Total 2068 1011 Balance -2067 2101.6 - Physical Examination General/Neuro: alert & oriented x3, NAD Neck: no JVD present Lungs: CTA, unlabored respirations Heart: RRR Abdomen: NT/ND Extremities: other: (no edema) - Telemetry Telemetry Rhythm: NSR - Labs Result Diagrams: 03/23/19 04:25 03/23/19 04:25 Troponin/CKMB CK-MB (CK-2) 9.3 ng/mL (0-6.6) H* 03/22/19 22:25 Troponin I 1.167 ng/mL (< 0.028) H* 03/22/19 22:25 - Assessment/Plan 1. NSTEMI 2. VFib arrest 3. S/P cooling protocol, appears neurolically intact. 4. CAD. 5. S/P DC to LAD 6. S/P Stenting to RCA and OM1 yesterday with AVELINO. 7. Ischemic CM. EF at 40-45% 8. Hx of afib/flutter s/p ablation in [place]. PLAN: - Continue Brilinta and ASA 81 mg daily - PCI to RCA and OM1 with AVELINO. - He is currently not tolerating PO. Will do full antioagulation with Lovenox until he can take brilinta,. he was loaded yesterday with 180 mg po once through NG tube. - 30 minutes critical care.
[2019-03-23 19:35] VITALS: BP 156/75
[2019-03-23] MEDS ORDERED: Enoxaparin Sodium 80 MG/0.8 ML SYRINGE SC SCH (21:00)
[2019-03-23] MEDS ORDERED: Sodium Chloride 0.9% 500 ML IV SCH (22:30)
[2019-03-23] MEDS ORDERED: Amiodarone 450 MG, Admixture Fee 1 EACH in Dextrose 5% in Water 250 ML IVPB SCH (22:30)
[2019-03-23 22:43] VITALS: TEMP 101.7
[2019-03-23] MEDS ORDERED: Digoxin 0.5 MG/2 ML AMP ONE (23:33)
[2019-03-23] MEDS ORDERED: Vancomycin HCl 1.5 GM in Sodium Chloride 0.9% 250 ML 300 ML IVPB SCH (23:59)
--- NOTE | 2019-03-24 01:09 | PDOC.EVN ---
Event Note - Event Note Event Note: CODE BLUE Code blue called at 0019 due to agonal rhythm with patient becoming unresponsive. CPR was immediately started and at the time of our teams arrival, the first dose of epinephrine was being administered. CPR was continued throughout the code, switching providers every 2 minutes at each pulse check. Epinephrine was administered every three minutes and amiodarone was given twice. The patient spent most of the code in PEA and asystole with 2 episodes of v- fib. During the episodes of v-fib, defibrillation shocks were administered and then chest compressions resumed. Bicarb x2 was given and Calcium x1 was given. Patient was intubated with 7.5 ET tube at 0036 to 24cm at teeth by Dr. Stiles after 3 attempts by myself and [address] Catherine that were unsuccessful with the glidescope due to excess secretions and patient's body habitus. Time of was called by Dr. Catherine at 0100 on 03/24/19. Addendum - Attending - Attending Attestation Date/Time: 03/24/[address] Snider's note as above. ACLS protocols followed with no return of spontaneous circulation. Time of 01:00. Family at bedside.
--- NOTE | 2019-03-24 02:10 | PDOC.EVN ---
Event Note - Event Note Event Note: Patient had reported fever and blood cultures were obtained as other cultures were already underway. I was made aware of his relative hypotension, but he was receiving a fluid bolus. When he did not fully respond, I ordered another 500 cc bolus. The nurse contacted Dr. Medellin and he ordered an Amio gtt. He then had a respiratory arrest and a code was called. The prolonged code did result in recovery of rhythm or spontaneous respirations. The code protocol was continued until the patient's arrived and had time to process the situation. Following the code, I met with the patient's and son. He had questions as they felt the patient had been improving and were getting positive communication from the team. He had been told by his mother that he should go to the [facility] and see him in the morning and was upset that he did not get a chance to see him before he passed. I explained the nature of the problem with the presumed VT arrest and the systemic injury to the body that occurs with that, the severe nature of the coronary disease, the trauma of the initial CPR and the cardiomyopathy. Explained the next steps in the process for him. Answered his questions to the best of my ability. The hospital on- call [facility] was in attendance as well.
[2019-03-24] MEDS ORDERED: EPINEPHrine 1 MG/10 ML Abboject SYRINGE ONE (02:16)
--- NOTE | 2019-03-24 16:34 | DIS ---
DATE OF ADMISSION: 03/21/2019 DATE OF DISCHARGE: 03/24/2019 PLACIDO OF : 03/24/2019 at 0100 hours. PRIMARY CAUSES OF : 1. Status post cardiac arrest with ventricular fibrillation, 3 days. 2. Acute respiratory failure with hypoxia. 3. Coronary artery disease with stent placed to RCA and OM1 with drug-eluting stent by Dr. Prieto. 4. Ischemic cardiomyopathy with EF of 40% to 45%. 5. [id number] myocardial infarction. BRIEF COURSE DURING HOSPITALIZATION: The patient initially had a cardiac arrest while he was visiting his aunt, who was in hospice. Hospice nurses started CPR immediately and EMS was summoned. The patient was intubated and was hypotensive on arrival. He was placed on Levophed. He has had consultation with Dr. Prieto for Cardiology, Dr. Roth for Pulmonology. He was taken to cardiac cath on 2018, and has had drug-eluting stent placed to RCA and obtuse marginal-1 on the . On 03/23/2019, training developer, the patient was extubated. Post extubation, the patient was conversing and following verbal stimuli. Overnight and training developer on the around 12:00 midnight, the patient had hypotensive episodes and was given fluid boluses. He was also placed on Levophed and finally a Code Blue was called. He was resuscitated per ACLS protocol. The patient was reintubated with the code. At around 1 a.m., the patient was declared . His was at bedside. The body will be released to family per hospital protocol. Job ID: [id number] MTDD
== END 2019-03-24 01:00 | disposition expired | DRG 246 ==
LOC: ERS 14:15 → CCU 15:32
PROVIDERS: ADMIT Internal Medicine; ATTEND Internal Medicine
PROC: 4A023N7 Measurement of Cardiac Sampling and Pressure, Left Heart, Percutaneous Approach (ICD-10-PCS; 2019-03-22)
PROC: B2111ZZ Fluoroscopy of Multiple Coronary Arteries using Low Osmolar Contrast (ICD-10-PCS; 2019-03-22)
PROC: 027034Z Dilation of Coronary Artery, One Artery with Drug-eluting Intraluminal Device, Percutaneous Approach (ICD-10-PCS; principal; 2019-03-23)
PROC: 027036Z Dilation of Coronary Artery, One Artery with Three Drug-eluting Intraluminal Devices, Percutaneous Approach (ICD-10-PCS; 2019-03-23)
PROC: 5A12012 Performance of Cardiac Output, Single, Manual (ICD-10-PCS; 2019-03-23)
DX: I49.01 Ventricular fibrillation (principal); J96.01 Acute respiratory failure with hypoxia; I21.4 Non-ST elevation (NSTEMI) myocardial infarction; G93.40 Encephalopathy, unspecified; I25.10 Atherosclerotic heart disease of native coronary artery without angina pectoris; I25.5 Ischemic cardiomyopathy; Z51.5 Encounter for palliative care; N40.0 Benign prostatic hyperplasia without lower urinary tract symptoms; I48.91 Unspecified atrial fibrillation; I10 Essential (primary) hypertension; Z79.01 Long term (current) use of anticoagulants; Z88.0 Allergy status to penicillin; Z87.891 Personal history of nicotine dependence; Z95.5 Presence of coronary angioplasty implant and graft; Z95.1 Presence of aortocoronary bypass graft
CPT/HCPCS: 36415; 36416; 36556; 51702; 70450; 71045; 71275; 80053; 81003; 81015; 82550; 82553; 82805; 83605; 83690; 83735; 84100; 84484; 85025; 85610; 85730; 87040; 87070; 87086; 87205; 92928; 92929; 92977; 93005; 93010; 93306; 93455; 94002; 94003; 94760; 96365; 96367; 96374; 96375; 96376; 99292; C1769; C1874; C9600; C9601; J0171; J0282; J0360; J0696; J1160; J1644; J1650; J2001; J2060; J2270; J2405; J2704; J3010; J3246; J3370; J3480; J3490; J7050; J7070; P9045; Q9966; Q9967; S0028